=== PATIENT | female | born 1940 | race Caucasian/White ===

== ENCOUNTER → 2020-07-01 | Outpatient (CLI) | payer OTHER ==
[~2020-07-01] MED LIST: CELEXA10 MG PO; CENTRUM COMPLE1 EACH PO; CRANBERRY PLUS1 EACH PO; DITROPAN 5 MG TA5 MG PO; ELIQUIS2.5 MG PO; LOPRESSOR100 MG PO; NAPROXEN SODIU220 MG PO; NORCO 7.5-3251 EACH PO; POTASSIUM99 M1 PO; PRINIVIL5 MG PO; SINGULAIR10 MG PO; SYNTHROID88 MCG PO; TIZANIDINE HCL2 MG PO; VENTOLIN HFA 66.7 GM INH; ZANTAC150 MG PO
== END ==
LOC: LAB 14:07
PROVIDERS: Internal Medicine Nephrology
DX: N17.9 Acute kidney failure, unspecified (principal)
CPT/HCPCS: 36415; 80053; 82570; 84156

== ENCOUNTER → 2020-07-28 | Outpatient (CLI) | payer OTHER | LOC: HEART 5 14:12 | DX: R06.02 Shortness of breath (principal); I08.1 Rheumatic disorders of both mitral and tricuspid valves; I27.20 Pulmonary hypertension, unspecified | CPT/HCPCS: 93306 ==

== ENCOUNTER → 2020-08-31 | Outpatient (CLI) | payer OTHER | LOC: HEART 5 15:00 | DX: R06.02 Shortness of breath (principal) | CPT/HCPCS: 71046; 94010; 95012 ==

== ENCOUNTER → 2020-09-09 | Outpatient (CLI) | payer OTHER ==
[2020-09-09 11:39] LABS: RED BLOOD COUNT 4.27 M/UL (4.00-5.10)
== END ==
LOC: LAB 10:46
PROVIDERS: Nurse Practitioner Family
DX: I10 Essential (primary) hypertension (principal); E78.5 Hyperlipidemia, unspecified; E03.9 Hypothyroidism, unspecified
CPT/HCPCS: 36415; 80053; 80061; 84443; 85025

== ENCOUNTER → 2020-11-03 | Outpatient (CLI) | payer OTHER | LOC: LAB 16:38 | PROVIDERS: Internal Medicine Nephrology | DX: N17.9 Acute kidney failure, unspecified (principal) | CPT/HCPCS: 80053; 81001; 82570; 84156 ==

== ENCOUNTER → 2020-12-19 | Outpatient (CLI) | payer OTHER | LOC: LAB 15:37 | PROVIDERS: Internal Medicine Nephrology | DX: N17.9 Acute kidney failure, unspecified (principal) | CPT/HCPCS: 36415; 80053; 81001; 82570; 84156 ==

== ENCOUNTER → 2021-03-30 | Outpatient (CLI) | payer MEDICARE ==
[2021-03-30 11:23] LABS: HEMOGLOBIN 13.4 gm/dl (12.3-15.3); RED BLOOD COUNT 4.36 M/UL (4.00-5.10); WHITE BLOOD COUNT 13.3 K/UL (4.5-11.0)
[2021-03-31 08:13] LABS: A/G RATIO 1.7 (1.2-2.2); ALKALINE PHOSPHATASE, S 96 IU/L (44-121); ALT (SGPT) 16 IU/L (0-32); AST (SGOT) 23 IU/L (0-40); BILIRUBIN, TOTAL 0.4 mg/dL (0.0-1.2); BUN 16 mg/dL (8-27); BUN/CREATININE RATIO 13 (12-28); CALCIUM, SERUM 9.4 mg/dL (8.7-10.3); CARBON DIOXIDE, TOTAL 24 mmol/L (20-29); CHLORIDE, SERUM 104 mmol/L (96-106); CHOLESTEROL, TOTAL 205 mg/dL (100-199); CREATININE, SERUM 1.28 mg/dL (0.57-1.00); EGFR IF AFRICN AM 46 (>59); EGFR IF NONAFRICN AM 40 (>59); GLOBULIN, TOTAL 2.5 g/dL (1.5-4.5); GLUCOSE, SERUM 97 mg/dL (65-99); HDL CHOLESTEROL 48 mg/dL (>39); LDL CHOLESTEROL CALC 127 mg/dL (0-99); LDL/HDL RATIO 2.6 ratio (0.0-3.2); POTASSIUM, SERUM 4.4 mmol/L (3.5-5.2); PROTEIN, TOTAL, SERUM 6.7 g/dL (6.0-8.5); SODIUM, SERUM 143 mmol/L (134-144); T. CHOL/HDL RATIO 4.3 ratio (0.0-4.4); TRIGLYCERIDES 169 mg/dL (0-149)
== END ==
LOC: LAB 10:35
PROVIDERS: Nurse Practitioner Family
DX: I10 Essential (primary) hypertension (principal); E78.5 Hyperlipidemia, unspecified; E03.9 Hypothyroidism, unspecified
CPT/HCPCS: 36415; 80053; 80061; 82570; 84156; 84443; 85025

== ENCOUNTER → 2021-06-14 | Outpatient (CLI) | payer MEDICARE | LOC: US 09:30 | PROVIDERS: Internal Medicine Nephrology | DX: N17.9 Acute kidney failure, unspecified (principal) | CPT/HCPCS: 36415; 80053; 82570; 84156 ==

== ENCOUNTER → 2021-12-19 | Outpatient (CLI) | payer MEDICARE | LOC: LAB 09:18 | PROVIDERS: Internal Medicine Nephrology | DX: N18.2 Chronic kidney disease, stage 2 (mild) (principal) | CPT/HCPCS: 36415; 80053; 82570; 84156 ==